=== PATIENT | female | born 1990 | race Caucasian/White ===

== ENCOUNTER 2020-06-08 12:51 | Emergency (ER) | payer SELFPAY ==
[~2020-06-08] VITALS: Ht 165.1 cm; Wt 72.3 kg
[2020-06-08] MEDS ORDERED: PROMETHAZINE 25 MG/ML, 1ML ONE (13:35)
[2020-06-08] MEDS ORDERED: MAALOX/HYOSCYAMINE/LIDOCAINE 45 ML BTL ONE (13:36)
--- NOTE | 2020-06-08 13:45 | NUR ---
PT CAME IN CO RUQ ABD PAIN THAT STARTED THIS MORNING. PT REPORTS ITS WORSE WHEN SHE EATS AND THAT HER MOTHER HAD HER GALLBLADDER REMOVED AROUND HER SAME AGE. 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 PT MEDCIATED PER JUN. UA SENT. BLANKET PROVIDED.
[2020-06-08 13:58] LABS: MICROSCOPIC NOT IND
[2020-06-08] MEDS ORDERED: MAALOX/HYOSCYAMINE/LIDOCAINE 45 ML BTL PO ONE (14:00)
[2020-06-08] MEDS ORDERED: PROMETHAZINE 25 MG/ML, 1ML IM ONE (14:00)
[2020-06-08 14:09] LABS: BASOPHILS % (AUTO) 1 % (0-1); EOSINOPHILS % (AUTO) 1 % (1-7); LYMPHOCYTES % (AUTO) 43 % (22-44); MEAN CORPUSCULAR HEMOGLOBIN 32.2 pg (27.0-34.8); MEAN PLATELET VOLUME 8.8 fL (7.4-10.4); MONOCYTES % (AUTO) 5 % (2-9); NEUTROPHILS % (AUTO) 50 % (42-75); PLATELET COUNT 239 x10^3/uL (130-400); RED BLOOD COUNT 4.39 x10^6/uL (3.82-5.3); RED CELL DISTRIBUTION WIDTH 13.5 % (9.6-15.2)
[2020-06-08 14:10] LABS: MD NO
[2020-06-08 14:24] LABS: ALANINE AMINOTRANSFERASE 26 U/L (12-78); ALBUMIN 3.6 g/dL (3.4-5.0); ANION GAP 9 mmol/L (5-15); CALCIUM 8.9 mg/dL (8.5-10.1); CHLORIDE 110 mmol/L (98-107); CREATININE 0.75 mg/dL (0.55-1.02)
--- NOTE | 2020-06-08 14:24 | NUR ---
US IN WITH PT AT THIS TIME
[2020-06-08 14:29] LABS: ALKALINE PHOSPHATASE 39 U/L (45-117); BILIRUBIN,TOTAL 0.4 mg/dL (0.2-1.0); TOTAL PROTEIN 7.3 g/dL (6.4-8.2)
--- NOTE | 2020-06-08 14:43 | NUR ---
US COMPLETE. AWAITING RESULTS. PT RESTING IN [facility]. VSS. NAD
[2020-06-08 15:23] VITALS: BP 115/68
== END 2020-06-08 15:53 | disposition home or self-care (01) ==
LOC: ED 15:45
DX: K29.00 Acute gastritis without bleeding (principal); R10.84 Generalized abdominal pain; R10.13 Epigastric pain; R11.2 Nausea with vomiting, unspecified; J45.909 Unspecified asthma, uncomplicated
CPT/HCPCS: 36415; 76700; 80053; 81003; 83690; 84703; 85025; 96372; 99284; J2550